=== PATIENT | female | born 1960 | race Caucasian/White ===

== ENCOUNTER 2020-10-12 04:16 | Observation (INO) | payer OTHER, SELFPAY ==
[2020-10-12] VITALS (9 sets, daily range): BP systolic 123–128; BP diastolic 72–76; PULSE 57–103; RESP 18–20; TEMP 36.6–37.4; O2SAT 99–100; BMI 21.4
--- NOTE | 2020-10-12 | ECHO_ITS ---
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 Summary 1. Left ventricular systolic function is low normal, estimated at 50-55%. 2. Left ventricular chamber dimension is normal. 3. There is no increased left ventricular wall thickness. 4. The left ventricular diastolic function is grade I diastolic dysfunction. 5. Left atrial chamber dimension is mildly enlarged. 6. Aneurysmal atrial septum. 7. Suspected patent foramen ovale visualized by agitated saline imaging. 8. There is mild tricuspid valve regurgitation. Left Ventricle Left ventricular systolic function is low normal, estimated at 50-55%. Left ventricular chamber dimension is normal. There is no increased left ventricular wall thickness. The left ventricular diastolic function is grade I diastolic dysfunction. Right Ventricle Right ventricular chamber dimension is normal. Right ventricular systolic function is normal. Left Atria Left atrial chamber dimension is mildly enlarged. Right Atria Right atrial chamber dimension is normal. Atrial Septum Aneurysmal atrial septum. Suspected patent foramen ovale visualized by agitated saline imaging. Aortic Valve The aortic valve is trileaflet. There is mild aortic valve sclerosis. There is no aortic valve stenosis. There is trace aortic valve regurgitation. Pulmonic Valve The pulmonic valve is normal. There is no pulmonic valve stenosis. There is trace pulmonic regurgitation. Mitral Valve The mitral valve has normal leaflets. There is no mitral valve stenosis. There is trace mitral valve regurgitation. Tricuspid Valve The tricuspid valve leaflets are normal. There is no significant tricuspid valve stenosis. There is mild tricuspid valve regurgitation. No pulmonary hypertension, estimated pulmonary arterial systolic pressure is 29 mmHg. Pericardium/Pleural The pericardium appears normal. There is no pericardial effusion. Inferior Vena Cava Normal inferior vena cava with >50% collapse upon inspiration consistent with elevated right atrial pressure, 10 mmHg. Aorta The aortic root size at the sinus of Valsalva is normal. The prox ascending aorta size is normal. Left Ventricular Outflow Tract Name Value Normal LVOT 2D LVOT Diameter 1.9 cm LVOT Doppler LVOT Peak Gradient 3 mmHg LVOT Mean Gradient 2 mmHg LVOT VTI 22 c
--- NOTE | ~2020-10-12 | MR_ITS ---
EXAMINATION: MR brain/brain stem wo con DATE: 10/12/2020 13:53 INDICATION: Right arm weakness. Paresthesias. TECHNIQUE: Magnetic resonance imaging (MRI) of the brain and brainstem was performed without intraven ous contrast. Sequences included sagittal and axial T1-weighted FSE, axial diffusion-weighted FS EPI, axial T2*-weighted GRE, axial T2-weighted FLAIR Propeller, and axial T2-weighted Propeller. Apparent diffusion coefficient (ADC) maps were created. COMPARISON: None. FINDINGS: There is no intracranial hemorrhage, acute infarction, or abnormal intracranial mass lesion . The ventricles are normal in size. The paranasal sinuses are clear. The orbits are normal. The mast oid air cells are normal. IMPRESSION: 1. Normal brain. Reviewed, dictated and finalized at location B. IMPRESSION: 1. Normal brain.
--- NOTE | ~2020-10-12 | US_ITS ---
EXAMINATION: US venous doppler [facility] DATE: 10/13/2020 09:57 INDICATION: Transient ischemic episode with right hemiparesis in a patient with a patent foramen oval e. TECHNIQUE: Grayscale ultrasound images without and with compression and Doppler ultrasound images of the bilateral lower extremity veins were obtained. COMPARISON: None. FINDINGS: The visualized portions of right common femoral vein, profunda (deep) femoral vein, femoral vein, pop liteal vein, posterior tibial veins, peroneal veins, gastrocnemius vein and greater saphenous vein ou tflow are patent. 3.1 x 0.7 x 1.7 cm anechoic Hammer's cyst at the right popliteal fossa. The visualized portions of left common femoral vein, profunda femoral vein, femoral vein, popliteal v ein, posterior tibial veins, peroneal veins, gastrocnemius vein and greater saphenous vein outflow ar e patent. IMPRESSION: 1. No deep venous thrombosis in either lower limb. 2. Small right Hammer's cyst. Reviewed, dictated and finalized at location A.
--- NOTE | ~2020-10-12 | MR_ITS ---
EXAMINATION: MR cervical spine wo/w con DATE: 10/12/2020 13:53 INDICATION: Right arm weakness. TECHNIQUE: Magnetic resonance imaging (MRI) of the cervical spine was performed without and with 12 m L MultiHance intravenous contrast. Sequences included sagittal and axial T2-weighted FSE, sagittal ST IR FSE, and sagittal and axial T1-weighted FSE. Postcontrast sequences included sagittal and axial T1 -weighted FS FSE. COMPARISON: None FINDINGS: There is 2 mm retrolisthesis of C5 on C6. Vertebral body heights are normal. There is moder ately decreased disc height at C5-C6 and mildly decreased disc height at C6-C7. The spinal cord signa l intensity is normal. The following disc levels are specifically discussed: C2-C3: There is a central protrusion. There is no uncovertebral joint osteoarthritis. There is modera te right and mild left facet joint osteoarthritis. There is mild lateral neural foraminal stenosis. T here is no central canal stenosis. C3-C4: The disc does not extend beyond the endplate margin. There is mild left uncovertebral joint os teoarthritis. There is mild right and moderate left facet joint osteoarthritis. There is mild right a nd moderate left neural foraminal stenosis. There is no central canal stenosis. C4-C5: The disc does not extend beyond the endplate margin. There is no uncovertebral joint osteoarth ritis. There is mild bilateral facet joint osteoarthritis. There is no neural foraminal stenosis. The re is no central canal stenosis. C5-C6: The disc is bulging. There is moderate and severe left uncovertebral joint osteoarthritis. The re is mild bilateral facet joint osteoarthritis. There is moderate right and severe left neural rachid inal stenosis. There is mild central canal stenosis. C6-C7: The disc is bulging. There is moderate bilateral uncovertebral joint osteoarthritis. There is mild right and moderate left facet joint osteoarthritis. There is mild right and moderate left neural foraminal stenosis. There is mild central canal stenosis. C7-T1: The disc does not extend beyond the endplate margin. There is no uncovertebral joint osteoarth ritis. There is mild right and moderate left facet joint osteoarthritis. There is mild left neural fo raminal stenosis. There is no central canal stenosis. IMPRESSION: 1. Moderate cervical spondylosis. Reviewed, dictated and finalized at location B.
--- NOTE | ~2020-10-12 | CT_ITS ---
EXAMINATION: CTA brain carotid DATE: 10/12/2020 14:10 INDICATION: Paresthesias. Right arm weakness. TECHNIQUE: Computed tomographic angiography (CTA) of the head was performed without and with 100 mL O mnipaque-350 intravenous contrast. CTA of the neck was performed with intravenous contrast. Automated exposure control and iterative reconstruction technique were employed. The dose-length product was 1 704.88 mGy-cm. Maximum intensity projection and volume rendered 3D-reconstructions were created by nilda andrew technologist on a separate workstation. COMPARISON: Brain MRI 10/12/2020 FINDINGS: HEAD CTA: There is no intracranial hemorrhage, acute infarction, or abnormal intracranial mass lesion . The ventricles are normal in size. The orbits are normal. The paranasal sinuses are clear. The mast oid air cells are normal. The vertebral arteries are codominant. There is no significant stenosis of basilar artery or the posterior cerebral arteries. The posterior communicating arteries are normal. T here is no significant stenosis of the intracranial internal carotid arteries or anterior or middle c erebral arteries. Anterior communicating artery is normal. There is no aneurysm. NECK CTA: There are no pathologically enlarged lymph nodes. There is no significant stenosis of the v ertebral arteries. There is plaque in the proximal internal carotid arteries. There is 0% stenosis of the proximal right internal carotid artery relative to normal distal artery lumen diameter (NASCET c riteria). There is 23% stenosis of the proximal left internal carotid artery relative to normal dista l artery lumen diameter. There is moderate cervical spondylosis. IMPRESSION: 1. Normal brain. No aneurysm or significant intracranial arterial stenosis. 2. 0% stenosis of the proximal right internal carotid artery relative to normal distal artery lumen d iameter (NASCET criteria). 3. 23% stenosis of the proximal left internal carotid artery relative to normal distal artery lumen d iameter. Reviewed, dictated and finalized at location B. IMPRESSION: 1. Normal brain. No aneurysm or significant intracranial arterial stenosis. 2. 0% stenosis of the proximal right internal carotid artery relative to normal distal artery lumen diameter (NASCET criteria). 3. 23% stenosis of the proximal left internal carotid artery relative to normal distal artery lumen diameter.
--- NOTE | 2020-10-12 04:20 | ADMGEN ---
This patient, Xiomara Whipple, was admitted to Medical Room 259-. Patient/family oriented to hospital policies and general routines including ID bracelet, bed and alarms, visiting hours, pain management, procedures, bathroom and other care routines, personal items, smoking policy, room service/diet, and visiting hours. Information on how to activate the Rapid Response Team has been discussed. Patient/Family are encouraged to report perceived risks to care and to ask questions if they do not understand what they are told or what they should do.
[2020-10-12] MEDS: LEVOTHYROXINE SODIUM 50 MCG TABLET PO (06:44)
[2020-10-12 13:42] LABS: Estimated CRCL calculation 70 ml/min; Estimated Glomerular Filt Rate > 60
[2020-10-12 14:52] LABS: Anion Gap 6 mmol/L (8-16); Blood Urea Nitrogen 12 mg/dL (7-17); Calcium 9.1 mg/dL (8.4-10.2); Carbon Dioxide 28 mmol/L (22-30); Chloride 104 mmol/L (98-107); Estimated CRCL calculation 62 ml/min; Estimated Glomerular Filt Rate > 60; Glucose 89 mg/dL (65-105); Sodium 138 mmol/L (137-145)
--- NOTE | 2020-10-12 15:41 | PM.SD2 ---
Same Day Admit/Disch: HPI History of Present Illness Chief complaint: TIA Narrative: Xiomara Whipple is a 60 year old female with a past medical history hypothyroidism and osteoporosis who presented emergency room for right arm weakness. Patient states that she laid down for bed at 10:00 p.m. last night in her normal state of health and got up at 10:15 pm and noticed that her right arm was weak after laying on it. She felt a little disoriented had a little off balance show she stood up and realized her right arm was hanging down which was abnormal. She had no movement in it. She went into the kitchen and to lift it up to set on the table. She was able to move her fingers but unable to her arms. She had no numbness, tingling or pain just simply weakness. She decided to come into the emergency room at [facility]. She was given aspirin and Plavix and she said that she continued to have weakness for a few hours and then it gradually improved. On admission here at [facility] she had absolutely no further symptoms. Patient denies any problems with speech, swallowing, asymmetrical features, problems walking, but did say she was off-balance a bit. She denies palpitations, history of AFib or cardiac arrhythmias, vision changes, headaches, abdominal pain, diarrhea, constipation, dysuria, rashes, wounds or leg swelling. She received her 2nd dose of her COVID-19 vaccine greater than 2 weeks ago but was unsure the exact date. She states that she is a pretty healthy lady. She walks daily and exercises routinely. She is building a house with her and has been moving objects more. She is a service secretary at work. [facility] Past Medical History Medical History (Updated 10/12/20 @ 16:53 by Helene Hi PA-C) Hypothyroidism Osteoporosis Surgical History Surgical History (Updated 10/12/20 @ 16:53 by Helene Hi PA-C) No history of previous surgery Family History Family History Father Congestive heart failure Hypertension Mother Lymphoma Hypertension Sibling Melanoma Cerebrovascular accident Social History Social History (Updated 10/12/20 @ 16:54 by Helene Hi PA-C) Social History: Patient does not smoke, rarely drinks alcohol, and does not do drugs. She would like to be a full code. If she is unable to make her own decision she would like her , Kranthi, to make decisions for her. Smoking status: Never smoker Alcohol intake: never Substance use: never Spiritual care concerns: No Same Day Admit/Disch: Med Pre-admit Medications Home Medications Medication Instructions Recorded Confirmed Type alendronate 70 mg PO DAILY 10/12/20 10/12/20 History levothyroxine 50 mcg PO DAILY 10/12/20 10/12/20 History Exam Narrative: Exam Narrative: General:Well developed well nourished patient resting in bed in no acute distress HEENT: Normocephalic, atraumatic, PERRL, Sclerae anicteric, oral mucosa moist. Neck: Supple Resp: CTA Heart: RRR with no murmurs. Telemetry shows no abnormalities with the exception of 1 alarm review which looks like re-entry with heart rate at 60. no signs of afib Abd: Soft, nontender. No pain to palpation. Positive bowel sounds Skin: Warm and dry Extremities: No swelling, erythema or pain to palpation Neuro: Alert and Oriented x4 . CN 2-12 intact. Sharp and dull sensation intact upper lower extremities. Patient able to do [id number] and alternating movements. Strength 5/5 the upper and lower extremities. No focal neurological deficits. No abnormalities to the right arm DS: Data Data Completed and Pending Labs on day of discharge: Labs from last 24 hours 10/12/20 10/12/20 14:37 13:35 Sodium 138 Potassium 4.0 Chloride 104 Carbon Dioxide 28 Anion Gap 6 L BUN 12 Creatinine 0.80 0.70 Estim Creat Clear Calc 62 70 Estimated GFR > 60 > 60 Glucose 89 Calcium 9.1
--- NOTE | 2020-10-12 17:01 | PM.IMHP ---
H&P: HPI History of Present Illness Date/Time: 10/12/20 17:01 Chief Complaint: right arm weakness Narrative: Xiomara Whipple is a 60 year old female with a past medical history hypothyroidism and osteoporosis who presented emergency room for right arm weakness. Patient states that she laid down for bed at 10:00 p.m. last night in her normal state of health and got up at 10:15 pm and noticed that her right arm was weak after laying on it. She felt a little disoriented had a little off balance show she stood up and realized her right arm was hanging down which was abnormal. She had no movement in it. She went into the kitchen and to lift it up to set on the table. She was able to move her fingers but unable to her arms. She had no numbness, tingling or pain just simply weakness. She decided to come into the emergency room at [facility]. She was given aspirin and Plavix and she said that she continued to have weakness for a few hours and then it gradually improved. On admission here at [facility] she had absolutely no further symptoms. Patient denies any problems with speech, swallowing, asymmetrical features, problems walking, but did say she was off-balance a bit. She denies palpitations, history of AFib or cardiac arrhythmias, vision changes, headaches, abdominal pain, diarrhea, constipation, dysuria, rashes, wounds or leg swelling. She received her 2nd dose of her COVID-19 vaccine greater than 2 weeks ago but was unsure the exact date. She states that she is a pretty healthy lady. She walks daily and exercises routinely. She is building a house with her and has been moving objects more. She is a medical office secretary at work. Review of Systems Review of Systems: All systems reviewed & are unremarkable except as noted in HPI and below PMFSH Past Medical History Medical History (Updated 10/12/20 @ 17:09 by Helene iH PA-C) Hypothyroidism Osteoporosis Surgical History Surgical History (Updated 10/12/20 @ 16:53 by Helene Hi PA-C) No history of previous surgery Family History Family History Father Congestive heart failure Hypertension Mother Lymphoma Hypertension Sibling Melanoma Cerebrovascular accident Social History Social History (Updated 05/11/21 @ 16:54 by Helene Hi PA-C) Social History: Patient does not smoke, rarely drinks alcohol, and does not do drugs. She would like to be a full code. If she is unable to make her own decision she would like her , Kranthi, to make decisions for her. Smoking status: Never smoker Alcohol intake: never Substance use: never Spiritual care concerns: No Meds Home Medications and Allergies Home Medications Medication Instructions Recorded Confirmed Type alendronate 70 mg PO DAILY 10/12/20 10/12/20 History levothyroxine 50 mcg PO DAILY 10/12/20 10/12/20 History Allergies Allergy/AdvReac Type Severity Reaction Status Date / Time Sulfa (Sulfonamide Allergy Rash Verified 10/12/20 04:24 Antibiotics) Vital Signs Vital Signs - 24 hr 10/12/20 04:20 10/12/20 05:07 10/12/20 05:20 Temperature 98 F Pulse Rate 57 L 67 62 Respiratory Rate 20 Blood Pressure 128/76 Pulse Oximetry 100 10/12/20 08:00 10/12/20 14:00 Temperature 99.3 F Pulse Rate 70 69 Respiratory Rate 18 Blood Pressure 126/72 Pulse Oximetry 99 Exam Narrative: Exam Narrative: General:Well developed well nourished patient resting in bed in no acute distress HEENT: Normocephalic, atraumatic, PERRL, Sclerae anicteric, oral mucosa moist. Neck: Supple Resp: CTA Heart: RRR with no murmurs. Telemetry shows no abnormalities with the exception of 1 alarm review which looks like re-entry with heart rate at 60. no signs of afib Abd: Soft, nontender. No pain to palpation. Positive bowel sounds Skin: Warm and dry Extremities: No swelling, erythema or pain to palpation
[2020-10-13] VITALS: PULSE 64
[2020-10-13 04:00] VITALS: PULSE 61
[2020-10-13 05:20] VITALS: BP 100/58; PULSE 57; RESP 18; TEMP 36.4; O2SAT 99
[2020-10-13 05:55] LABS: Cholesterol 204 mg/dL (0-200); HDL Direct 63 mg/dL; Triglycerides 78 mg/dL (<150)
[2020-10-13] MEDS: LEVOTHYROXINE SODIUM 50 MCG TABLET PO (05:55)
[2020-10-13 06:06] LABS: LDL Cholesterol Direct 104 mg/dL
[2020-10-13 08:00] VITALS: PULSE 63
[2020-10-13] MEDS: ASPIRIN 81 MG ENTERIC TABLET PO (08:19)
[2020-10-13] MEDS: ATORVASTATIN 10 MG TABLET PO (08:19)
--- NOTE | 2020-10-13 11:10 | PM.DS ---
DS: Admitting Diagnosis Admitting Diagnosis Admitting Diagnosis: TIA DS: Discharge Diagnosis Discharge Diagnosis (1) TIA (transient ischemic attack): Code(s): G45.9 - Transient cerebral ischemic attack, unspecified Status: Acute Assessment and Plan: Patient's symptoms consistent with TIA with no evidence of ischemia on imaging -MRI of the brain negative, CTA brain does not show any stroke or aneurysm, carotids less than 50% occluded, U/S LE no DVT -patient was given aspirin 81mg at d./c -telemetry reviewed, Holter monitor provided at discharge. (2) Patent foramen ovale: Code(s): Q21.1 - Atrial septal defect Status: Acute Assessment and Plan: Noted on echo -ultrasound of the lower extremities shows no DVT -follow-up with cardiology. Likely no tx indicated (3) Hypothyroidism: Code(s): E03.9 - Hypothyroidism, unspecified Status: Acute Assessment and Plan: Continue levothyroxine (4) Right arm weakness: Code(s): R29.898 - Other symptoms and signs involving the musculoskeletal system Status: Acute Assessment and Plan: Resolved, likely due to above -brachial plexus injury less likely DS: Summary Hospital Course Hospital Course: Xiomara Whipple is a 60 year old female with a past medical history hypothyroidism and osteoporosis who presented emergency room for right arm weakness. Patient states that she laid down for bed at 10:00 p.m. night of admission in her normal state of health and got up at 10:15 pm and noticed that her right arm was weak after laying on it. She felt a little disoriented had a little off balance show she stood up and realized her right arm was hanging down which was abnormal. She had no movement in it. She went into the kitchen and to lift it up to set on the table. She was able to move her fingers but unable to her arms. She had no numbness, tingling or pain just simply weakness. She decided to come into the emergency room at [facility]. She was given aspirin and Plavix and she said that she continued to have weakness for a few hours and then it gradually improved. On admission here at [facility] she had absolutely no further symptoms. Patient denies any problems with speech, swallowing, asymmetrical features, problems walking, but did say she was off balance a bit. She denies palpitations, history of AFib or cardiac arrhythmias, vision changes, headaches, abdominal pain, diarrhea, constipation, dysuria, rashes, wounds or leg swelling. She received her 2nd dose of her COVID-19 vaccine greater than 2 weeks ago but was unsure the exact date. She states that she is a pretty healthy lady. She walks daily and exercises routinely. She underwent a MRI of the brain which was negative,cervical spine MRI which showed no etiology for symptoms (but did show mod cervical spondylosis), CTA of brain which showed 23% of the left internal carotid with 0% on the right. Echo showed: 1. Left ventricular systolic function is low normal, estimated at 50-55%. 2. Left ventricular chamber dimension is normal. 3. There is no increased left ventricular wall thickness. 4. The left ventricular diastolic function is grade I diastolic dysfunction. 5. Left atrial chamber dimension is mildly enlarged. 6. Aneurysmal atrial septum. 7. Suspected patent foramen ovale visualized by agitated saline imaging. 8. There is mild tricuspid valve regurgitation. Because of the PFO an u/s of the LE was done which showed no DVT. She was set up for an event monitor for 30 days prior to d/c. I called Dr. Campos and discussed the stroke w/u (echo was pending at that time) and she agrees to follow her outpt. Pt was educated about the worrisome signs and symptoms to come back to the ER for and was discharged in stable condition on aspirin and atorvastatin. Status at Discharge Functional status at discharge: independent ambulation Overall status at dischar
--- NOTE | 2020-10-13 11:56 | WPDNEURCNPN ---
Assessment and Plan Additional Plan normal neurological exam with negative evaluation patient discharged on baby aspirin daily and further records Consult date: 10/13/20 Time Seen: 12:30 HPI: Xiomara Whipple is a 60 year old female admitted to the hospital for the complaints of right upper extremity weakness in addition to the ongoing history of 1. Hypo thyroidism 2. Osteoporosis as per the information available she laid down for bed at 10:00 p.m. night in her usual state of health by 10 15 she noted a right upper extremity was weak she felt somewhat disoriented also somewhat of balance when she stood up she went to the kitchen and lifted up to set on the table she was able to move her fingers but unable to move her arms had no associated numbness she decided to come to the emergency room at [facility] where she was given aspirin and Plavix but she continued to have weakness of UE hours and then gradually improved she gave no history of any other associated symptomatology as mentioned before she does have ongoing history of hypo thyroidism and osteoporosis. She does not smoke does not drink, evaluation documented normal routine lab normal venous Doppler study CTA revealed no aneurysm 23% stenosis of the proximal left internal carotid artery and 0% of the right side cervical spine MRI revealed only mild central canal stenosis at C5-C6 and C6 and 7 but no indentation of the spinal cord and MRI of the brain normal Review of Systems Review of Systems: All systems reviewed & are unremarkable except as noted in HPI and below PMFSH Past Medical History Medical History Hypothyroidism Osteoporosis Surgical History Surgical History No history of previous surgery Family History Family History Father Congestive heart failure Hypertension Mother Lymphoma Hypertension Sibling Melanoma Cerebrovascular accident Social History Social History Social History: Patient does not smoke, rarely drinks alcohol, and does not do drugs. She would like to be a full code. If she is unable to make her own decision she would like her , Kranthi, to make decisions for her. Smoking status: Never smoker Alcohol intake: never Substance use: never Spiritual care concerns: No Meds Home Medications and Allergies Home Medications Medication Instructions Recorded Confirmed Type alendronate 70 mg PO DAILY 10/12/20 10/12/20 History aspirin 81 mg PO DAILY #30 tablet 10/12/20 Rx atorvastatin 10 mg PO DAILY #30 tablet 10/12/20 Rx levothyroxine 50 mcg PO DAILY 10/12/20 10/12/20 History Allergies Allergy/AdvReac Type Severity Reaction Status Date / Time Sulfa (Sulfonamide Allergy Rash Verified 10/12/20 04:24 Antibiotics) Vital Signs Vital Signs - 24 hr 10/12/20 12:00 10/12/20 14:00 10/12/20 16:00 Temperature 37.4 C Pulse Rate 72 69 77 Respiratory Rate 18 Blood Pressure 126/72 Pulse Oximetry 99 10/12/20 20:00 10/12/20 20:40 10/13/20 00:00 Temperature 36.6 C Pulse Rate 103 H 68 64 Respiratory Rate 18 18 Blood Pressure 123/75 Pulse Oximetry 99 99 10/13/20 04:00 10/13/20 05:20 Temperature 36.4 C Pulse Rate 61 57 L Respiratory Rate 18 Blood Pressure 100/58 L Pulse Oximetry 99 Exam Const: General: cooperative, healthy appearing, comfortable, no acute distress, alert and awake Nutritional Appearance: average body habitus and thin Orientation/consciousness: oriented to person, oriented to place and oriented to time Limitations: no limitations HENMT: Head: normocephalic Ears: hearing grossly normal bilaterally General nose exam: Normal external nose present Face and sinus: normal facial exam Mouth: Yes Normal oral and palatal mucosa present Eyes: General: appearance norm
== END 2020-10-13 12:25 | disposition home or self-care (01) ==
PROVIDERS: Physician Assistant; Admitting Provider Internal Medicine; PCP Family Medicine Sports Medicine; Visit Provider Family Medicine
DX: G45.9 Transient cerebral ischemic attack, unspecified (principal); G81.91 Hemiplegia, unspecified affecting right dominant side; Q21.1 Atrial septal defect; E03.9 Hypothyroidism, unspecified; M81.0 Age-related osteoporosis without current pathological fracture; M71.21 Synovial cyst of popliteal space [Baker], right knee; R53.1 Weakness; I08.1 Rheumatic disorders of both mitral and tricuspid valves; M47.812 Spondylosis without myelopathy or radiculopathy, cervical region; R29.898 Other symptoms and signs involving the musculoskeletal system; M79.601 Pain in right arm
CPT/HCPCS: 36415; 70496; 70498; 70551; 72156; 80048; 80061; 93306; 93970; 96375; A9270; A9577; G0378; G0379; Q9967